=== PATIENT | male | born 1970 | race Caucasian/White ===

== ENCOUNTER → 2017-01-07 | Outpatient (REF) ==
[~2017-01-07] MED LIST: DICL75TA PO; EFFE150C PO; FERR325T3 PO; LIDO1OIN2 TOP; LISI30TA4 PO; NEUR800T PO; NICO14DI20 TD; OMEP20CA3 PO; TRAZ50TA11 PO
--- NOTE | 2017-01-08 01:51 | REP ---
Clinical: Preoperative clearance . Comparison: None . Technique: PA and lateral. Findings: The mediastinum and cardiac silhouette are normal. Airway is patent and midline. The lung vance are clear and without acute consolidation, effusion, or pneumothorax. The skeletal structures are intact and normal. Impression: 1. No acute cardiopulmonary process. Signed by Aron Painter MD 01/08/2017 01:43 A
== END ==
LOC: M RAD 13:13
PROVIDERS: ATTEND Family Medicine
DX: Z01.810 Encounter for preprocedural cardiovascular examination (principal); F17.200 Nicotine dependence, unspecified, uncomplicated

== ENCOUNTER 2018-07-04 20:42 | Emergency (ER) | payer OTHER ==
[~2018-07-04] VITALS: Ht 175.3 cm; Wt 81.8 kg
[~2018-07-04 20:42] MED LIST changes: -EFFE150C PO; +EFFE150C2 PO; +LISI-672 PO; -LISI30TA4 PO; +TRAZ-160 PO; -TRAZ50TA11 PO
[2018-07-04 22:54] VITALS: BP 160/97
== END 2018-07-04 22:55 | disposition home or self-care (01) ==
LOC: M ED 20:42
DX: R45.4 Irritability and anger (principal); I10 Essential (primary) hypertension; K21.9 Gastro-esophageal reflux disease without esophagitis; F33.9 Major depressive disorder, recurrent, unspecified; Z79.899 Other long term (current) drug therapy; Z88.0 Allergy status to penicillin; F17.210 Nicotine dependence, cigarettes, uncomplicated

== ENCOUNTER → 2019-01-28 | Outpatient (CLI) | payer OTHER ==
[~2019-01-28] MED LIST changes: -OMEP20CA3 PO; +OMEP20CA4 PO; -TRAZ-160 PO; +TRAZ-252 PO
--- NOTE | 2019-01-29 08:42 | REP ---
Clinical: Nontraumatic wrist pain Technique: AP, lateral, bilateral oblique views right wrist . Findings: The carpal bones, surrounding osseous structures, soft tissues, and joint spaces are normal. There is no evidence for acute fracture or dislocation. No subcutaneous emphysema or radiodense foreign body. Impression: Normal wrist series. No acute fracture or dislocation Electronically Signed by Aron Painter MD 01/29/2019 08:35 A
== END ==
LOC: M WUC 11:45
PROVIDERS: ATTEND Physician Assistant
DX: S63.501A Unspecified sprain of right wrist, initial encounter (principal); X58.XXXA Exposure to other specified factors, initial encounter

== ENCOUNTER 2021-09-27 17:37 | Emergency (ER) | payer OTHER ==
[~2021-09-27 17:37] MED LIST changes: -LISI-672 PO; +LISI30TA4 PO; +OMEP1CAP73 PO; -OMEP20CA4 PO
[2021-09-27 18:47] LABS: HEMATOCRIT 45.4 % (42.0-52.0); HEMOGLOBIN 15.4 g/dl (13.5-17.5); MEAN CORPUSCULAR HEMOGLOBIN 30.2 pg (27.0-33.0); MEAN CORPUSCULAR HGB CONC 33.9 g/dl (32.0-36.5); PLATELET COUNT, AUTOMATED 199 10^3/uL (150-450); WHITE BLOOD COUNT 10.8 10^3/uL (4.0-10.0)
[2021-09-27 19:03] LABS: AMPHETAMINES LEVEL URINE NEGATIVE (NEGATIVE); BARBITURATES URINE NEGATIVE (NEGATIVE); BENZODIAZEPINES URINE NEGATIVE (NEGATIVE); CANNABINOIDS URINE NEGATIVE (NEGATIVE); COCAINE METABOLITE URINE NEGATIVE (NEGATIVE); METHADONE URINE NEGATIVE (NEGATIVE); OPIATES URINE NEGATIVE (NEGATIVE); PHENCYCLIDINE URINE NEGATIVE (NEGATIVE)
[2021-09-27 19:15] LABS: RSV AMPLIFICATION NEGATIVE (NEGATIVE)
[2021-09-27 19:18] LABS: ACETAMINOPHEN LEVEL < 2.0 UG/ML (10.0-30.0); ALBUMIN 3.9 GM/DL (3.2-5.2); ALT/SGPT 32 U/L (12-78); BILIRUBIN,DIRECT 0.2 MG/DL (0.0-0.2); BILIRUBIN,TOTAL 0.7 MG/DL (0.2-1.0); BLOOD UREA NITROGEN 13 MG/DL (7-18); CALCIUM LEVEL 8.8 MG/DL (8.5-10.1); CARBON DIOXIDE LEVEL 25 MEQ/L (21-32); CHLORIDE LEVEL 113 MEQ/L (98-107); CREATININE FOR GFR 1.42 MG/DL (0.70-1.30); ETHYL ALCOHOL (ETHANOL) < 0.003 % (0.000-0.010); GLOMERULAR FILTRATION RATE 56.2 (>56); GLUCOSE, FASTING 90 MG/DL (70-100); POTASSIUM SERUM 3.7 MEQ/L (3.5-5.1); SALICYLATE LEVEL 2.2 MG/DL (5.0-30.0); SODIUM LEVEL 145 MEQ/L (136-145); TOTAL PROTEIN 7.2 GM/DL (6.4-8.2)
[2021-09-27 23:09] VITALS: BP 144/84
== END 2021-09-28 00:54 | disposition home or self-care (01) ==
LOC: M ED 17:37
DX: F43.0 Acute stress reaction (principal); U07.1 COVID-19; E78.5 Hyperlipidemia, unspecified; F32.A Depression, unspecified; I10 Essential (primary) hypertension; F17.200 Nicotine dependence, unspecified, uncomplicated; Z88.0 Allergy status to penicillin; Z79.811 Long term (current) use of aromatase inhibitors; Z79.899 Other long term (current) drug therapy

== ENCOUNTER → 2023-05-13 | Outpatient (REF) | payer OTHER ==
[~2023-05-13] MED LIST changes: +AMLO1TAB24; -EFFE150C2 PO; +EFFE150C3 PO; +METO1TAB7; +ROSU20TA61
== END ==
LOC: M LAB REF 15:58
PROVIDERS: ATTEND Surgery
DX: L72.3 Sebaceous cyst (principal)

== ENCOUNTER 2023-05-15 22:34 | Emergency (ER) | payer OTHER ==
[~2023-05-15] VITALS: Ht 175.3 cm; Wt 99.2 kg
[~2023-05-15 22:34] MED LIST changes: -AMLO1TAB24; -METO1TAB7; -ROSU20TA61
[2023-05-15 22:35] VITALS: BP 143/94; TEMP 97.2; O2SAT 98
[2023-05-15] MEDS ORDERED: AMLO1TAB24 (22:48)
[2023-05-15] MEDS ORDERED: METO1TAB7 (22:48)
[2023-05-15] MEDS ORDERED: ROSU20TA61 (22:48)
== END 2023-05-15 23:52 | disposition left against medical advice (07) ==
LOC: M ED 22:34
DX: Z53.21 Procedure and treatment not carried out due to patient leaving prior to being seen by health care provider (principal)